=== PATIENT | male | born 1985 | race Hispanic/Latino ===

== ENCOUNTER 2023-08-23 18:42 | Emergency (ER) | payer OTHER ==
[2023-08-23] MEDS ORDERED: diphenhydrAMINE 25 MG CAP ONE (19:02)
[2023-08-23] MEDS ORDERED: Dexamethasone 10 MG/ML VIAL ONE (19:02)
== END 2023-08-23 19:40 ==
LOC: EEVIPCON 18:42 → ERS 18:42
DX: T78.1XXA Other adverse food reactions, not elsewhere classified, initial encounter (principal)
CPT/HCPCS: 99283; J1100